=== PATIENT | female | born 1985 | race Caucasian/White ===

== ENCOUNTER 2022-01-18 07:59 | Outpatient (CLI) | payer OTHER | END 2022-01-18 08:00 | disposition home or self-care (01) | LOC: CSHLAB 07:59 | PROVIDERS: ATTEND Family Medicine | DX: Z20.822 Contact with and (suspected) exposure to COVID-19 (principal) | CPT/HCPCS: 87811 ==

== ENCOUNTER 2022-01-23 05:30 | Inpatient (IN) | payer BC, OTHER ==
[2022-01-23] MEDS ORDERED: NS w/ Oxytocin 30 units 500 ML ONE (07:50)
[2022-01-23] MEDS ORDERED: Bupivacaine/Epinephrine 0.25% 30 ML VIAL ONE (08:00)
[2022-01-23] MEDS ORDERED: Bupivacaine HCl 0.5%/Epinephrine 1:200,000/PF 30 ml Vial ONE (08:00)
[2022-01-23] MEDS ORDERED: Butorphanol Tartrate 1 MG/ML VIAL SLOW IVP PRN (09:15)
[2022-01-23] MEDS ORDERED: Promethazine HCl 25 MG/ML VIAL IM PRN ×2 (09:15→17:47)
[2022-01-23] MEDS ORDERED: NS w/ Oxytocin 30 units 500 ML IV SCH (09:15)
[2022-01-23] MEDS ORDERED: Penicillin G Potassium 5 MILL.UNITS in Sodium Chloride 0.9% 100 ML IVPB SCH (09:15)
[2022-01-23] MEDS ORDERED: Ondansetron PF 4 MG/2 ML Vial IVP PRN ×2 (09:15→17:47)
[2022-01-23] MEDS ORDERED: Lidocaine 1% (PF) 30 ML VIAL SC PRN (09:15)
[2022-01-23] MEDS ORDERED: NS w/ Oxytocin 30 units 500 ML IVPB SCH (09:15)
[2022-01-23] MEDS ORDERED: hydrALAZINE 20 MG/ML VIAL SLOW IVP PRN (09:15)
[2022-01-23 09:25] LABS: Mean Corpuscular HGB CONC 32.8 g/dL (32.0-36.0); Mean Corpuscular Hemoglobin 29.3 pg (27.0-33.0); Mean Corpuscular Volume 89.3 fl (81.6-98.3); Mean Platelet Volume 11.5 fl (7.4-10.4); Platelet Count 229 10x3/uL (150-450); RBC Distribution Width 15.2 % (11.5-14.5); White Blood Cell (WBC) Count 4.7 10x3/uL (3.5-10.5)
[2022-01-23 09:27] VITALS: BMI 25.8
[2022-01-23 09:50] LABS: Hep B Surf Ag Non-Reactive S/CO (NonReactive); Syphilis Antibody Nonreactive (Nonreactive); Syphilis Antibody Index 0.05 S/CO (<1.00 Non-Reactive)
[2022-01-23 10:00] LABS: HBSAg Index 0.18 S/CO (0-0.99)
[2022-01-23] MEDS: Penicillin G 2.5 MILL.units 2.5 MILL.UNITS in Premix Bag 1 BAG IVPB SCH ×2 (14:00→18:53)
[2022-01-23] MEDS: Lactated Ringer's 1,000 ML IV SCH ×2 (14:15→17:00)
[2022-01-23] MEDS ORDERED: Penicillin G Potassium 2.5 MILL.UNITS in Sodium Chloride 0.9% 100 ML IVPB SCH (14:30)
[2022-01-23] MEDS ORDERED: Fentanyl 2 mcg/Bup 0.1% Cadd 100 ML ONE (16:49)
[2022-01-23] MEDS ORDERED: Moisturizing Cream (Eucerin) 113 GM JAR TOP PRN (17:47)
[2022-01-23] MEDS ORDERED: Acetaminophen 325 MG TAB PO PRN (17:47)
[2022-01-23] MEDS ORDERED: diphenhydrAMINE 50 MG/ML VIAL IVP PRN (17:47)
[2022-01-23] MEDS ORDERED: Naloxone HCl 0.4 mg/ml Vial IVP PRN ×2 (17:47)
[2022-01-23] MEDS ORDERED: ePHEDrine Sulfate 50 MG/10 ML VIAL SLOW IVP PRN (17:47)
[2022-01-23] MEDS ORDERED: Communication Order-Pharmacy FS SCH (18:00)
[2022-01-23] MEDS ORDERED: Fentanyl 2 mcg/Bupivacaine 0.1% Cassette 100 ML EPIDURAL SCH (18:00)
[2022-01-23] MEDS ORDERED: Lactated Ringer's 500 ML IV PRN (18:11)
[2022-01-23] MEDS ORDERED: Fentanyl 100 MCG/2 ML VIAL ONE (19:48)
[2022-01-23] MEDS ORDERED: Misoprostol 200 MCG TAB ONE (21:55)
[2022-01-23] MEDS ORDERED: Carboprost 250 MCG/ML AMP ONE (21:56)
[2022-01-24 00:19] LABS: HIV (1/2) Antibody/Antigen Non-Reactive (NonReactive); HIV 1/2 INDEX 0.11 S/CO (<1.00)
[2022-01-24] MEDS ORDERED: Milk Of Magnesia 30 ML UDCUP PO PRN (01:14)
[2022-01-24] MEDS ORDERED: Lanolin Ointment 7 GM TUBE TOP PRN (01:14)
[2022-01-24] MEDS ORDERED: Benzocaine-Menthol 82.5 ML CAN TOP PRN (01:14)
[2022-01-24] MEDS ORDERED: Bisacodyl 10 MG SUPP PR PRN (01:14)
[2022-01-24] MEDS ORDERED: hydrALAZINE 20 MG/ML VIAL SLOW IVP PRN (01:14)
[2022-01-24] MEDS ORDERED: Preparation H Ointment 28 GM TUBE PR PRN (01:14)
[2022-01-24] MEDS ORDERED: HYDROcodone/Acetaminophen 5/325 mg Tablet PO PRN (01:14)
[2022-01-24] MEDS: Penicillin G 2.5 MILL.units 2.5 MILL.UNITS in Premix Bag 1 BAG IVPB SCH (05:15)
[2022-01-24] MEDS: Ibuprofen 800 MG TAB PO SCH ×3 (05:28→21:17)
[2022-01-24] MEDS: Docusate 100 MG CAP PO SCH ×2 (09:15→21:17)
[2022-01-24] MEDS: Ferrous Sulfate 325 MG TAB PO SCH ×2 (09:15→13:19)
[2022-01-24 16:04] VITALS: TEMP 98.1
[2022-01-24 21:39] VITALS: BP 121/73
== END 2022-01-24 23:10 | disposition home or self-care (01) | DRG 807 ==
LOC: CSHLD 05:46 → CSHPP 01-24 05:10
PROVIDERS: ADMIT Family Medicine; ATTEND Family Medicine
PROC: 10E0XZZ Delivery of Products of Conception, External Approach (ICD-10-PCS; principal; 2022-01-23)
PROC: 10907ZC Drainage of Amniotic Fluid, Therapeutic from Products of Conception, Via Natural or Artificial Opening (ICD-10-PCS; 2022-01-23)
DX: O34.211 Maternal care for low transverse scar from previous cesarean delivery (principal); Z37.0 Single live birth; O99.824 Streptococcus B carrier state complicating childbirth; Z3A.39 39 weeks gestation of pregnancy; Z79.899 Other long term (current) drug therapy
CPT/HCPCS: 51702; 85027; 86780; 86850; 86900; 86901; 87340; 87389; J2540; J2590; J3490; J7120

== ENCOUNTER 2023-10-21 18:00 | Inpatient (IN) | payer BC ==
[2023-10-21 20:38] VITALS: BMI 25.8
[2023-10-21] MEDS: Lactated Ringer's 1,000 ML IV SCH (20:45)
[2023-10-21] MEDS ORDERED: Misoprostol 200 MCG TAB PR PRN (21:59)
[2023-10-21] MEDS ORDERED: HYDROcodone/Acetaminophen 5/325 mg Tablet PO PRN (21:59)
[2023-10-21] MEDS ORDERED: Ibuprofen 800 MG TAB PO PRN (21:59)
[2023-10-21] MEDS ORDERED: Butorphanol Tartrate 1 MG/ML VIAL SLOW IVP PRN (21:59)
[2023-10-21] MEDS ORDERED: Acetaminophen 500 MG TAB PO PRN (21:59)
[2023-10-21] MEDS ORDERED: Carboprost 250 MCG/ML AMP IM PRN (21:59)
[2023-10-21] MEDS ORDERED: fentaNYL 50 mcg/mL 1 mL Vial SLOW IVP PRN (21:59)
[2023-10-21] MEDS ORDERED: Tranexamic Acid 1,000 MG/10 ML VIAL IVP PRN (21:59)
[2023-10-21] MEDS ORDERED: Methylergonovine 0.2 MG/ML VIAL IM PRN (21:59)
[2023-10-21] MEDS ORDERED: Ondansetron PF 4 MG/2 ML Vial IVP PRN (21:59)
[2023-10-21] MEDS ORDERED: hydrALAZINE 20 MG/ML VIAL SLOW IVP PRN (21:59)
[2023-10-21] MEDS ORDERED: Lidocaine 1% (PF) 30 ML VIAL SC PRN (21:59)
[2023-10-21] MEDS ORDERED: Promethazine HCl 25 MG/ML VIAL IM PRN (21:59)
[2023-10-21] MEDS ORDERED: Oxytocin 30 units/NS 500 ML 500 ML IV SCH (22:00)
[2023-10-21 22:13] LABS: Hematocrit 32.9 % (34.9-44.5); Hemoglobin 11.4 g/dL (12.0-15.5); Mean Corpuscular HGB CONC 34.7 g/dL (32.0-36.0); Mean Corpuscular Hemoglobin 29.8 pg (27.0-33.0); Mean Corpuscular Volume 86.1 fl (81.6-98.3); Mean Platelet Volume 11.7 fl (7.4-10.4); Platelet Count 269 10x3/uL (150-450); RBC Distribution Width 12.3 % (11.5-14.5); Red Blood Cell (RBC) Count 3.82 10x6/uL (3.90-5.03); White Blood Cell (WBC) Count 6.5 10x3/uL (3.5-10.5)
[2023-10-21 22:37] LABS: Syphilis Antibody Nonreactive (Nonreactive)
[2023-10-21 22:38] LABS: HBsAg Index 0.21 S/CO (0-0.99); Hep B Surf Ag - L&D Non-Reactive S/CO (NonReactive)
[2023-10-21 22:42] LABS: HIV (1/2) Antibody/Antigen Non-Reactive (NonReactive); HIV 1/2 INDEX 0.08 S/CO (<1.00)
[2023-10-21] MEDS: Oxytocin 30 units/NS 500 ML 500 ML IV SCH (23:02)
[2023-10-22] MEDS ORDERED: Acetaminophen 325 MG TAB PO PRN (07:04)
[2023-10-22] MEDS ORDERED: Ondansetron PF 4 MG/2 ML Vial IVP PRN (07:04)
[2023-10-22] MEDS ORDERED: Lactated Ringer's 500 ML IV PRN (07:04)
[2023-10-22] MEDS ORDERED: Moisturizing Cream (Eucerin) 113 GM JAR TOP PRN (07:04)
[2023-10-22] MEDS ORDERED: Naloxone HCl 0.4 mg/ml Vial IVP PRN ×2 (07:04)
[2023-10-22] MEDS ORDERED: ePHEDrine Sulfate 50 MG/10 ML VIAL SLOW IVP PRN (07:04)
[2023-10-22] MEDS ORDERED: Promethazine HCl 25 MG/ML VIAL IM PRN (07:04)
[2023-10-22] MEDS ORDERED: diphenhydrAMINE 50 MG/ML VIAL IVP PRN (07:04)
[2023-10-22] MEDS ORDERED: Communication Order-Pharmacy FS SCH (07:15)
[2023-10-22] MEDS ORDERED: fentaNYL 2 mcg/Ropivacaine 0.2% Epidural 100 ML CADD EPIDURAL SCH (07:15)
[2023-10-22] MEDS ORDERED: HYDROcodone/Acetaminophen 5/325 mg Tablet PO PRN (13:15)
[2023-10-22] MEDS ORDERED: Bisacodyl 10 MG SUPP PR PRN (13:15)
[2023-10-22] MEDS ORDERED: Milk Of Magnesia 30 ML UDCUP PO PRN (13:15)
[2023-10-22] MEDS ORDERED: Benzocaine-Menthol 82.5 ML CAN TOP PRN (13:15)
[2023-10-22] MEDS ORDERED: hydrALAZINE 20 MG/ML VIAL SLOW IVP PRN (13:15)
[2023-10-22] MEDS: fentaNYL/Ropivacaine Epidural 100 ML ONE (15:30)
[2023-10-22] MEDS: Boostrix 0.5 ML (Tdap) VIAL (>/=7 yrs of age) IM ONE (15:31)
[2023-10-22] MEDS: Ibuprofen 800 MG TAB PO SCH (17:05)
[2023-10-22] MEDS: Ferrous Sulfate 325 MG TAB PO SCH (17:05)
[2023-10-22] MEDS: Docusate 100 MG CAP PO SCH (20:50)
[2023-10-23 08:27] VITALS: BP 127/88; TEMP 98.5
== END 2023-10-23 11:05 | disposition home or self-care (01) | DRG 807 ==
LOC: CSHLD 18:22 → CSHPP 10-22 14:30
PROVIDERS: ADMIT Family Medicine; ATTEND Family Medicine
PROC: 10E0XZZ Delivery of Products of Conception, External Approach (ICD-10-PCS; principal; 2023-10-22)
PROC: 10907ZC Drainage of Amniotic Fluid, Therapeutic from Products of Conception, Via Natural or Artificial Opening (ICD-10-PCS; 2023-10-22)
PROC: 3E033XZ Introduction of Vasopressor into Peripheral Vein, Percutaneous Approach (ICD-10-PCS; 2023-10-22)
DX: O34.211 Maternal care for low transverse scar from previous cesarean delivery (principal); Z37.0 Single live birth; O48.0 Post-term pregnancy; Z3A.40 40 weeks gestation of pregnancy
CPT/HCPCS: 85027; 86780; 86850; 86900; 86901; 87340; 87389; J2590; J7120